=== PATIENT | female | born 1965 | race Caucasian/White ===

== ENCOUNTER → 2016-10-18 | Outpatient (CLI) | payer OTHER ==
--- NOTE | 2016-10-18 16:28 | MR ---
EXAMINATION TYPE: MR lumbar spine wo con DATE OF EXAM: 10/18/2016 4:22 PM COMPARISON: NONE HISTORY: Low back pain radiating into Both Hips and down both Legs for approx 10 years CONTRAST: none Multiplanar, MultiSpin echo imaging of the lumbar spine was performed. L1-L2: Normal disc appearance without desiccation. No herniation, protrusion or disc bulging. No ca nal stenosis is present. Foramina are patent bilaterally. L2-L3: Normal disc appearance without desiccation. No herniation, protrusion or disc bulging. No ca nal stenosis is present. Foramina are patent bilaterally. L3-L4: Normal disc appearance without desiccation. No herniation, protrusion or disc bulging. No ca nal stenosis is present. Foramina are patent bilaterally. L4-L5: There is evidence of mild disc desiccation. Minimal posterior disc bulge. No evidence of disc herniation or protrusion. No central stenosis. Mild facet joint arthropathy without foraminal encroac hment. L5-S1: Severe disc desiccation with degenerative endplate marrow change. Mild posterocentral disc her niation effaces the ventral thecal sac. No evidence for central stenosis or lateral recess stenosis. Facet joint arthropathy with mild right foraminal encroachment. Lumbar segments are intact. No paraspinal masses are identified. Conus medullaris has a normal appe arance. IMPRESSION: 1. Degenerative disc disease as discussed. 2. Mild posterocentral disc herniation at L5-S1. Mild right foraminal encroachment.
== END ==
LOC: RADMRIMAIN 15:51
PROVIDERS: ATTEND Family Medicine
DX: M51.27 Other intervertebral disc displacement, lumbosacral region (principal); M51.36 Other intervertebral disc degeneration, lumbar region
CPT/HCPCS: 72148

== ENCOUNTER → 2017-03-12 | Outpatient (CLI) | payer OTHER | END | disposition home or self-care (01) | LOC: LABWHC1 11:00 | PROVIDERS: ATTEND Nurse Practitioner | DX: Z51.81 Encounter for therapeutic drug level monitoring (principal); Z79.899 Other long term (current) drug therapy | CPT/HCPCS: 36415; 80183 ==

== ENCOUNTER → 2019-04-23 | Outpatient (CLI) | payer OTHER ==
--- NOTE | 2019-04-23 09:47 | US ---
EXAMINATION TYPE: US abdomen complete DATE OF EXAM: 04/23/2019 COMPARISON: MRI CLINICAL HISTORY: R10.13 Epigastric pain,R93.7 abn MRI. EXAM MEASUREMENTS: Liver Length: 10.9 cm Gallbladder Wall: Surgically absent CBD: 0.7 cm Spleen: 10.4 cm Right Kidney: 10.7 x 4.0 x 5.3 cm Left Kidney: 10.8 x 4.6 x cm Pancreas: hypoechoic area posterior to vs part of uncinate process, possible lymph node vs mass Liver: left lobe cyst measuring 1.9 x 2.3 x 2.0cm Gallbladder: Surgically absent Evidence for sonographic Lopez's sign:no CBD: wnl Spleen: wnl Right Kidney: No hydronephrosis or masses seen Left Kidney: No hydronephrosis or masses seen, limited views due to overlying bowel gas Upper IVC: wnl Abd Aorta: bifurcation obscured by overlying bowel gas IMPRESSION: 1. There is a hypoechoic area in the region of the uncinate process of indeterminate etiology. Recomm end CT scan of the abdomen.. 2. Left lobe hepatic cysts. 3. Postcholecystectomy.
== END | disposition home or self-care (01) ==
LOC: RADUSMAIN 08:18
PROVIDERS: ATTEND Family Medicine
DX: K76.89 Other specified diseases of liver (principal); Z90.49 Acquired absence of other specified parts of digestive tract
CPT/HCPCS: 76700

== ENCOUNTER → 2019-05-12 | Outpatient (CLI) | payer OTHER ==
--- NOTE | 2019-05-12 10:25 | CT ---
EXAMINATION TYPE: CT abdomen w con DATE OF EXAM: 05/12/2019 HISTORY: Abnormal abdominal ultrasound, epigastric pain CT DLP: 361.60mGycm Automated Exposure Control for Dose Reduction was Utilized. CONTRAST: CT scan of the abdomen is performed with oral and with IV Contrast, patient injected with 100 ml mL o f Isovue 300. COMPARISON: Abdominal ultrasound April 23, 2019. Lumbar spine MRI October 18, 2016 FINDINGS: LUNG BASES: No significant abnormality is appreciated. LIVER/GB: Cholecystectomy clips are redemonstrated. Correlating with ultrasound there are scattered r ound hypodense lesions throughout the liver consistent with thin walled hepatic cysts measuring up to 2.4 cm long axis left hepatic lobe axial image 16. Some lesions are subcentimeter and thus to small to further characterize. PANCREAS: Pancreas is normal in size without concerning solid or cystic mass or ductal dilatation. Un cinate process appears within normal limits near axial image 29. Adjacent intra-abdominal fat just po sterior to the uncinate process and retrocaval space likely mimics hypoechoic area on recent ultrasou nd SPLEEN: Subcentimeter low dense lesion posterior spleen axial image 23 too small to further character ize presumed benign. ADRENALS: No significant abnormality is seen. KIDNEYS: Symmetric cortical medullary uptake and excretion without hydronephrosis or concerning renal mass bilaterally. BOWEL: Or oral contrast does not reach distal ileal level making evaluation of bowel slightly subopti mal. They're slightly wandering cecum into the anterior right mid abdomen. There is no suspicious sma ll or large bowel dilatation. LYMPH NODES: No greater than 1cm abdominal lymph nodes are appreciated. OSSEOUS STRUCTURES: Mild to moderate disc space narrowing and vacuum disc phenomenon L5-S1 level. Fac et arthropathy lower lumbar levels. OTHER: No significant additional abnormality is seen. IMPRESSION: No concerning pancreatic mass. No significant acute finding is seen.
== END | disposition home or self-care (01) ==
LOC: RADCTMAIN 08:35
PROVIDERS: ATTEND Family Medicine
DX: R93.5 Abnormal findings on diagnostic imaging of other abdominal regions, including retroperitoneum (principal)
CPT/HCPCS: 74160; Q9967

== ENCOUNTER 2019-11-25 09:17 | Emergency (ER) | payer OTHER ==
[2019-11-25 09:24] VITALS: TEMP 98.4
[2019-11-25] MEDS ORDERED: LORazepam 1 MG TAB PO STA (09:35)
[2019-11-25] MEDS ORDERED: ASPIRIN 81 MG PO STA (09:35)
[2019-11-25] MEDS ORDERED: SODIUM CHLORIDE 0.9% 1,000 ML IV STA (09:35)
--- NOTE | 2019-11-25 09:42 | ED ---
General Adult HPI - General Chief complaint: Shortness of Breath Stated complaint: SOB, dizzy Time Seen by Provider: 11/25/19 09:26 Source: patient, RN notes reviewed Mode of arrival: wheelchair Limitations: no limitations - History of Present Illness Initial comments: 54-year-old female with a past medical history of asthma, rheumatoid arthritis, bipolar disorder, bradycardia presents to the emergency department for a chief complaint of shortness of breath. Patient states that today she was sitting out in her car for over an hour and a half waiting to have a Covid test done. Patient states that she started to get short of breath when the humidity started increasing. States she started to drive home but the shortness of breath got worse and she started to become lightheaded. She felt like she was going to pass out so she drove back to the hospital. Patient denies any chest pain whatsoever at this time or at the beginning of this episode. Patient states this type of episode has been ongoing intermittently for about a month. States it usually lasts for 45 minutes and happen several times per day. Patient states over the past couple days she has felt better until now. Patient is noted to be hyperventilating at this point. Stating her fingers are tingling.Patient has no other complaints at this time including chest pain, abdominal pain, nausea or vomiting, headache, or visual changes. - Related Data Allergies Allergy/AdvReac Type Severity Reaction Status Date / Time meloxicam [From Mobic] Allergy Rash/Hives Verified 11/25/19 09:25 Penicillins Allergy Unknown Verified 11/25/19 09:25 Childhood Review of Systems ROS Statement: Those systems with pertinent positive or pertinent negative responses have been documented in the HPI. ROS Other: All systems not noted in ROS Statement are negative. Past Medical History Past Medical History: Asthma, Rheumatoid Arthritis (RA) Additional Past Medical History / Comment(s): biolar, ddd, bradycardia History of Any Multi-Drug Resistant Organisms: MRSA Date of last positivie culture/infection: 2019 MDRO Source:: toe Past Surgical History: Cholecystectomy Additional Past Surgical History / Comment(s): abd lap Past Psychological History: Bipolar Smoking Status: Former smoker Past Alcohol Use History: Rare Past Drug Use History: Marijuana General Exam Limitations: no limitations General appearance: alert, in no apparent distress Head exam: Present: atraumatic, normocephalic, normal inspection Eye exam: Present: normal appearance, PERRL, EOMI. Absent: scleral icterus, conjunctival injection, periorbital swelling ENT exam: Present: normal exam, mucous membranes moist Neck exam: Present: normal inspection, full ROM. Absent: tenderness, meningismus, lymphadenopathy Respiratory exam: Present: normal lung sounds bilaterally, other (tachypneic ). Absent: respiratory distress, wheezes, rales, rhonchi, stridor Cardiovascular Exam: Present: regular rate, normal rhythm, normal heart sounds. Absent: systolic murmur, diastolic murmur, rubs, gallop, clicks GI/Abdominal exam: Present: soft, normal bowel sounds. Absent: distended, tenderness, guarding, rebound, rigid Neurological exam: Present: alert Course Vital Signs 11/25/19 11/25/19 11/25/19 09:21 09:24 10:24 Temperature 98.4 F Pulse Rate 72 69 Respiratory 24 20 18 Rate Blood Pressure 130/81 115/61 O2 Sat by Pulse 100 99 Oximetry EKG Findings - EKG Comments: EKG Findings:: Normal sinus rhythm, ventricular rate 66, CT interval 134, QTC 438 Medical Decision Making - Medical Decision Making Vitals are stable. Heart rate is in the 50s and 60s. 100% on room air. On presentation patient is hyperventilating and very anxious. I did help patient called down and slow her breathing which helped with the tingling in her hands. She denies any chest pain. EKG shows a normal sinus rhythm with a ventricular rate of 66. CBC is unremarkable. CMP does show some mild hyponatremia, patient was given a liter of normal saline. CO2 is mildly low which is likely secondary to hyperventilation. Troponin and d-dimer are negative. Chest x-ray showed no acute process. Patient was reevaluated several times and is feeling much better at this time. Patient can follow up with primary care and to return here for any worsening symptoms. I discussed this case with attending Dr. Baltazar who agrees with this assessment and treatment plan. - Lab Data Result diagrams: 11/25/19 09:40 11/25/19 09:40 Lab Results 11/25/19 11/25/19 11/25/19 Range/Units 09:40 09:40 09:40 WBC 5.9 (3.8-10.6) k/uL RBC 4.35 (3.80-5.40) m/uL Hgb 13.1 (11.4-16.0) gm/dL Hct 38.7 (34.0-46.0) % MCV 88.9 (80.0-100.0) fL MCH 30.2 (25.0-35.0) pg MCHC 33.9 (31.0-37.0) g/dL RDW 12.3 (11.5-15.5) % Plt Count 283 (150-450) k/uL Neutrophils % 59 % Lymphocytes % 31 % Monocytes % 5 % Eosinophils % 2 % Basophils % 1 % Neutrophils # 3.5 (1.3-7.7) k/uL Lymphocytes # 1.8 (1.0-4.8) k/uL Monocytes # 0.3 (0-1.0) k/uL Eosinophils # 0.1 (0-0.7) k/uL Basophils # 0.1 (0-0.2) k/uL PT 9.8 (9.0-12.0) sec INR 0.9 (<1.2) APTT 23.6 (22.0-30.0) sec D-Dimer <0.17 (<0.60) mg/L FEU Sodium 130 L (137-145) mmol/L Potassium 4.1 (3.5-5.1) mmol/L Chloride 103 (98-107) mmol/L Carbon Dioxide 19 L (22-30) mmol/L Anion Gap 8 mmol/L BUN 10 (7-17) mg/dL Creatinine 0.54 (0.52-1.04) mg/dL Est GFR (CKD-EPI)AfAm >90 (>60 ml/min/1.73 sqM) Est GFR (CKD-EPI)NonAf >90 (>60 ml/min/1.73 sqM) Glucose 100 H (74-99) mg/dL Calcium 9.4 (8.4-10.2) mg/dL Magnesium 2.0 (1.6-2.3) mg/dL Total Bilirubin 0.4 (0.2-1.3) mg/dL AST 24 (14-36) U/L ALT 18 (4-34) U/L Alkaline Phosphatase 59 (38-126) U/L Troponin I (0.000-0.034) ng/mL NT-Pro-B Natriuret Pep pg/mL Total Protein 7.2 (6.3-8.2) g/dL Albumin 4.5 (3.5-5.0) g/dL Urine Opiates Screen (NotDetected) Ur Oxycodone Screen (NotDetected) Urine Methadone Screen (NotDetected) Ur Propoxyphene Screen (NotDetected) Ur Barbiturates Screen (NotDetected) U Tricyclic Antidepress (NotDetected) Ur Phencyclidine Scrn (NotDetected) Ur Amphetamines Screen (NotDetected) U Methamphetamines Scrn (NotDetected) U Benzodiazepines Scrn (NotDetected) Urine Cocaine Screen (NotDetected) U Marijuana (THC) Screen (NotDetected) Serum Alcohol <10 mg/dL 11/25/19 11/25/19 11/25/19 Range/Units 09:40 09:40 10:00 WBC (3.8-10.6) k/uL RBC (3.80-5.40) m/uL Hgb (11.4-16.0) gm/dL Hct (34.0-46.0) % MCV (80.0-100.0) fL MCH (25.0-35.0) pg MCHC (31.0-37.0) g/dL RDW (11.5-15.5) % Plt Count (150-450) k/uL Neutrophils % % Lymphocytes % % Monocytes % % Eosinophils % % Basophils % % Neutrophils # (1.3-7.7) k/uL Lymphocytes # (1.0-4.8) k/uL Monocytes # (0-1.0) k/uL Eosinophils # (0-0.7) k/uL Basophils # (0-0.2) k/uL PT (9.0-12.0) sec INR (<1.2) APTT (22.0-30.0) sec D-Dimer (<0.60) mg/L FEU Sodium (137-145) mmol/L Potassium (3.5-5.1) mmol/L Chloride (98-107) mmol/L Carbon Dioxide (22-30) mmol/L Anion Gap mmol/L BUN (7-17) mg/dL Creatinine (0.52-1.04) mg/dL Est GFR (CKD-EPI)AfAm (>60 ml/min/1.73 sqM) Est GFR (CKD-EPI)NonAf (>60 ml/min/1.73 sqM) Glucose (74-99) mg/dL Calcium (8.4-10.2) mg/dL Magnesium (1.6-2.3) mg/dL Total Bilirubin (0.2-1.3) mg/dL AST (14-36) U/L ALT (4-34) U/L Alkaline Phosphatase (38-126) U/L Troponin I <0.012 (0.000-0.034) ng/mL NT-Pro-B Natriuret Pep 175 pg/mL Total Protein (6.3-8.2) g/dL Albumin (3.5-5.0) g/dL Urine Opiates Screen Not Detected (NotDetected) Ur Oxycodone Screen Not Detected (NotDetected) Urine Methadone Screen Not Detected (NotDetected) Ur Propoxyphene Screen Not Detected (NotDetected) Ur Barbiturates Screen Not Detected (NotDetected) U Tricyclic Antidepress Not Detected (NotDetected) Ur Phencyclidine Scrn Not Detected (NotDetected) Ur Amphetamines Screen Not Detected (NotDetected) U Methamphetamines Scrn Not Detected (NotDetected) U Benzodiazepines Scrn Not Detected (NotDetected) Urine Cocaine Screen Not Detected (NotDetected) U Marijuana (THC) Screen Detected H (NotDetected) Serum Alcohol mg/dL Disposition Clinical Impression: Acute hyperventilation, Shortness of breath Disposition: HOME SELF-CARE Condition: Good Instructions (If sedation given, give patient instructions): Hyperventilation (ED) Additional Instructions: Please follow up with primary care in 1-2 days. Please return to the emergency room for any worsening symptoms. Is patient prescribed a controlled substance at d/c from ED?: No Referrals: Molly Saavedra MD [Primary Care Provider] - 1-2 days Time of Disposition: 11:14
--- NOTE | 2019-11-25 10:07 | XR ---
EXAMINATION TYPE: XR chest 1V portable DATE OF EXAM: 11/25/2019 COMPARISON: NONE HISTORY: Shortness of breath TECHNIQUE: Single frontal view of the chest is obtained. FINDINGS: There is no focal air space opacity, pleural effusion, or pneumothorax seen. The cardiac silhouette size is within normal limits. The osseous structures are intact. Heart size is normal. No overt failure. Biapical pleural thickenin g. Arthropathy of the shoulders. Mild hyperinflation. Correlate for asthma or COPD. Rounded density i n the right apex likely related to the anterior margin the first rib and could be followed on a short -term basis with apical lordotic x-ray. IMPRESSION: No acute process. See above.
[2019-11-25 10:09] LABS: Basophils # (A) 0.1 k/uL (0-0.2); Basophils % (A) 1 %; Eosinophils # (A) 0.1 k/uL (0-0.7); Eosinophils % (A) 2 %; HCT 38.7 % (34.0-46.0); HGB 13.1 gm/dL (11.4-16.0); Lymphocytes # (A) 1.8 k/uL (1.0-4.8); Lymphocytes % (A) 31 %; MCH 30.2 pg (25.0-35.0); MCHC 33.9 g/dL (31.0-37.0); MCV 88.9 fL (80.0-100.0); Monocytes # (A) 0.3 k/uL (0-1.0); Monocytes % (A) 5 %; Neutrophils # (A) 3.5 k/uL (1.3-7.7); Neutrophils % (A) 59 %; Platelet Count 283 k/uL (150-450); RBC 4.35 m/uL (3.80-5.40); RDW 12.3 % (11.5-15.5); WBC 5.9 k/uL (3.8-10.6)
[2019-11-25 10:22] LABS: INR 0.9 (<1.2); Partial Thromboplastin Time 23.6 sec (22.0-30.0); Prothrombin Time 9.8 sec (9.0-12.0)
[2019-11-25 10:24] LABS: D-Dimer <0.17 mg/L FEU (<0.60)
[2019-11-25 10:25] VITALS: RESP 18
[2019-11-25 10:33] LABS: ALT 18 U/L (4-34); AST 24 U/L (14-36); African American GFR (CKD) >90 (>60 ml/min/1.73 sqM); Albumin 4.5 g/dL (3.5-5.0); Alcohol <10 mg/dL; Alkaline Phosphatase 59 U/L (38-126); Anion Gap 8 mmol/L; Blood Urea Nitrogen 10 mg/dL (7-17); Calcium 9.4 mg/dL (8.4-10.2); Carbon Dioxide 19 mmol/L (22-30); Chloride 103 mmol/L (98-107); Glucose 100 mg/dL (74-99); Non-African American GFR(CKD) >90 (>60 ml/min/1.73 sqM); Potassium 4.1 mmol/L (3.5-5.1); Sodium 130 mmol/L (137-145); Total Bilirubin 0.4 mg/dL (0.2-1.3); Total Protein 7.2 g/dL (6.3-8.2)
[2019-11-25 10:55] LABS: Amphetamine Screen,Urine Not Detected (NotDetected); Barbiturate Screen,Urine Not Detected (NotDetected); Benzodiazepines Screen,Urine Not Detected (NotDetected); Cocaine Screen,Urine Not Detected (NotDetected); Methadone Screen, Urine Not Detected (NotDetected); Opiate Screen,Urine Not Detected (NotDetected); Oxycodone Screen, Urine Not Detected (NotDetected); Phencyclidine Screen,Urine Not Detected (NotDetected); Tricyclic Antidepressant,Urine Not Detected (NotDetected); Urn Cannabinoid Scrn Detected (NotDetected)
[2019-11-25 11:31] VITALS: BP 122/71; PULSE 60
== END 2019-11-25 11:45 | disposition home or self-care (01) ==
LOC: EC 09:17
DX: R06.4 Hyperventilation (principal); R06.02 Shortness of breath; R42 Dizziness and giddiness; E87.1 Hypo-osmolality and hyponatremia; Z88.0 Allergy status to penicillin; Z88.8 Allergy status to other drugs, medicaments and biological substances; Z87.891 Personal history of nicotine dependence
CPT/HCPCS: 36415; 93005; 85379; 83880; 80053; 83735; 84484; 85025; 85610; 85730; 80306; 71045; 99285; 96360; G0480; 80320

== ENCOUNTER → 2019-11-25 | Outpatient (CLI) | payer OTHER | END | disposition home or self-care (01) | LOC: LABWHC1 13:27 | PROVIDERS: ATTEND Family Medicine | DX: R53.83 Other fatigue (principal); R42 Dizziness and giddiness ==

== ENCOUNTER → 2019-12-17 | Outpatient (CLI) | payer OTHER ==
--- NOTE | 2019-12-17 08:04 | CT ---
EXAMINATION TYPE: CT chest wo con DATE OF EXAM: 12/17/2019 COMPARISON: None HISTORY: Abnormal chest x-ray CT DLP: 198.[address] of the chest was performed with lung and mediastinal window settings submitted. The la ck of contrast limits evaluation of the vascular, mediastinal and parenchymal structures including th e upper abdomen. LUNGS: The lungs are clear and free of infiltrate. No atelectasis. No pulmonary nodule or mass is de tected. No pleural effusion. No CT evidence of interstitial lung disease. MEDIASTINUM/MELANIA: Thoracic aorta is of normal caliber with limited evaluation given lack of contrast . The heart is not enlarged. No evidence for mediastinal mass. No lymph nodes greater than 1cm. UPPER ABDOMEN: Hepatic cysts noted. OTHER: No significant other abnormality. IMPRESSION: 1. No acute pulmonary process identified. No evidence for suspicious pulmonary nodule or mass.
== END | disposition home or self-care (01) ==
LOC: RADCTMAIN 07:17
PROVIDERS: ATTEND Family Medicine
DX: J45.40 Moderate persistent asthma, uncomplicated (principal); R93.89 Abnormal findings on diagnostic imaging of other specified body structures
CPT/HCPCS: 71250

== ENCOUNTER → 2020-06-26 | Outpatient (CLI) | payer OTHER ==
[2020-06-26 20:09] LABS: T4, Free (Free Thyroxine) 0.8 ng/dL (0.80-1.80)
== END | disposition home or self-care (01) ==
LOC: LABWHC1 14:02
PROVIDERS: ATTEND Nurse Practitioner Family
DX: E55.9 Vitamin D deficiency, unspecified (principal); R53.2 Functional quadriplegia; R53.83 Other fatigue
CPT/HCPCS: 36415; 82306; 82607; 84439; 84443; 84481

== ENCOUNTER → 2020-08-11 | Outpatient (CLI) | payer OTHER ==
--- NOTE | 2020-08-11 15:17 | US ---
EXAMINATION TYPE: US kidneys/renal and bladder DATE OF EXAM: 08/11/2020 COMPARISON: US & CT CLINICAL HISTORY: E87.1 Hypo-osmolality and hyponatremia. Abnormal labs EXAM MEASUREMENTS: Right Kidney: 11.6 x 4.2 x 4.5 cm Left Kidney: 11.4 x 5.3 x 4.7 cm Right Kidney: Appeared wnl Left Kidney: Appeared wnl, lower pole gassed out Bladder: wnl IMPRESSION: 1. Normal bilateral renal ultrasound
== END | disposition home or self-care (01) ==
LOC: RADUSWWP 14:30
PROVIDERS: ATTEND Family Medicine
DX: E87.1 Hypo-osmolality and hyponatremia (principal)
CPT/HCPCS: 76770

== ENCOUNTER → 2020-08-25 | Outpatient (CLI) | payer OTHER ==
[2020-08-25 10:16] VITALS: BP 133/83; PULSE 83; RESP 18; TEMP 98.4
--- NOTE | 2020-08-25 11:05 | P.GSHP ---
History of Present Illness H&P Date: 08/25/20 Chief Complaint: abnormal right breast mammogram Praveena is a 55 year old white female seen in consultation for Dr. Saavedra regarding a mammographic abnormality in her right breast. [place] [id number]. This reveals 6-7 mm nodular density in the upper-outer quadrant of the right breast. No lesions of concern were noted in the left breast. An ultrasound was performed. This revealed a 0.5 cm circumscribed oval lesion. This was felt to be too small to characterize and 6 month follow-up ultrasound was recommended. The patient herself does not note any lumps masses or nodules in her breast. She does not complain of any nipple discharge or skin changes. The complain of any breast pain. She has not had any recent trauma or infection in the breast. She's not had any surgery or biopsies in the breast in the past. Caffeine: Focus of coffee in the morning and one popped during the day Nicotine: Tiffanie jeanne-bromine: daily Family history: father: thyroid cancer maternal grandfather: cancer, ? source 2 brother: testicular cancer Hormonal History: menarche: 13 , 1 miscarriage, age at first : 15, breast fed: no menopause:48 BCP: < 1 years hormones: none Surgical History: exploratory laproscopic exam oral surgery biopsy of skin gallbaldder Medical History: herniation of cervical disc lumbar spine herniation DJD osteoarthritis arthritis rheumatoid bipolar and major depressive disorder Social History: smoke: stopped 2017, was 1 06/24 PPD alcohol: stopped drinking 2 years ago used to drink heavy drugs: Marijuana daily - Constitutional Constitutional: Reports sweats - EENT Eyes: bilateral as per HPI Ears: deny: decreased hearing, tinnitus Ears, nose, mouth and throat: Denies headache, Denies sore throat - Breasts Breasts: bilateral: as per HPI - Cardiovascular Cardiovascular: Denies chest pain, Denies shortness of breath - Respiratory Comment: former smoker, asthma, sleep apnea - Gastrointestinal Gastrointestinal: Reports constipation, Denies abdominal pain, Denies diarrhea, Denies nausea, Denies vomiting - Genitourinary (Female) Genitourinary: Denies dysuria, Denies hematuria - Menstruation Menstruation: Reports postmenopausal - Musculoskeletal Musculoskeletal: Reports as per HPI - Integumentary Integumentary: Reports pruritus - Neurological Neurological: Reports numbness, Reports weakness - Psychiatric Comment: bipolar Psychiatric: Reports anxiety, Reports depression - Endocrine Endocrine: Reports fatigue, Reports weight change - Hematologic/Lymphatic Comment: none - Allergic/Immunologic Allergic/Immunologic: Reports seasonal allergies Past Medical History Past Medical History: Asthma, Rheumatoid Arthritis (RA) Additional Past Medical History / Comment(s): biolar, ddd, bradycardia History of Any Multi-Drug Resistant Organisms: MRSA Date of last positivie culture/infection: 2019 MDRO Source:: toe Past Surgical History: Cholecystectomy Additional Past Surgical History / Comment(s): abd lap Past Psychological History: Bipolar Smoking Status: Former smoker Past Alcohol Use History: Rare Past Drug Use History: Marijuana Medications and Allergies Home Medications Medication Instructions Recorded Confirmed Type Albuterol Sulfate [Proair Hfa] 1 - 2 puff INHALATION Q6HR PRN 08/25/20 08/25/20 History Budesonide/Formoterol Fumarate 2 puff INHALATION BID 08/25/20 08/25/20 History [Symbicort 160-4.5 Mcg Inhaler] Citalopram Hydrobromide 40 mg PO HS 08/25/20 08/25/20 History [Citalopram HBr] Ergocalciferol (Vitamin D2) 1,250 mcg PO DAILY 08/25/20 08/25/20 History [Vitamin D2 (50,000 Iu)] Gabapentin [Neurontin] 400 mg PO TID 08/25/20 08/25/20 History HYDROcodone/APAP 5-325MG [[place] 2 tab PO Q6HR PRN 08/25/20 08/25/20 History 5-325] Montelukast [Singulair] 10 mg PO HS 08/25/20 08/25/20 History tiZANidine [Zanaflex] 4 mg PO 08/25/20 History Allergies Allergy/AdvReac Type Severity Reaction Status Date / Time meloxicam [From Mob] Allergy Rash/Hives Verified 08/25/20 10:12 Penicillins Allergy Unknown Verified 08/25/20 10:12 Childhood Surgical - Exam Vital Signs Temp Pulse Resp BP Pulse Ox 98.4 F 83 18 133/83 97 08/25/20 10:12 08/25/20 10:12 08/25/20 10:12 08/25/20 10:12 08/25/20 10:12 BMI 23.5 - General well developed, well nourished, moderate distress - Eyes normal ocular movement - ENT edentulous upper teeth, poor dentition normal pinna, normal nares - Neck no masses, trachea midline - Respiratory normal respiratory effort, clear to auscultation - Cardiovascular Rhythm: regular Heart Sounds: normal: S1, S2 - Abdomen Abdomen: soft - Integumentary normal turgor - Neurologic no disoriented, no combative - Musculoskeletal difficulty with ambulation - Psychiatric oriented to time, oriented to person, oriented to place, speech is normal, memory intact breast exam: BRA: 36B inspection: Bilateral grade 1/2 ptosis, tattoo over left chest wall Palpation: Right breast: Multiple positional exam fibrocystic changes, no dominant masses or nodules of concern Right axilla: No adenopathy of concern Left breast: Multiple positional exam fibrocystic changes no dominant masses or nodules of concern Left axilla: No adenopathy of concern Results mammogram and ultrasound results reviewed Assessment and Plan Assessment: Impression: 1. Fibrocystic breast changes 2. Abnormal right breast mammogram and ultrasound 3. Bipolar disorder 4. Severe back pain degenerative disc disease 5. Rheumatoid arthritis Risk of comorbidities: Repeat mammogram and ultrasound were ordered Plan: 1. Lifestyle modification to decrease fibrocystic breast changes/daily chocolate patient understands that this may exacerbate fibrocystic changes but did not increase risk of breast cancer 2. Repeat right breast mammogram and ultrasound in 6 months with physician exam at that time 3. Patient is follow up sooner if anything of concern Cc: Dr. Saavedra Encounter 25 minutes, time spent in physical examination, reviewing medical records, and counseling. encounter: #Complexity of problems: Fibrocystic breast disease, abnormal mammogram and ultrasound, family history of cancer, severe degenerative disc disease, rheumatoid arthritis Amount and complexity of data reviewed Mammogram and ultrasound results reviewed, repeat mammogram and ultrasound ordered, Risk of morbidity or mortality: Low to moderate
== END ==
LOC: WWCWWP 10:04
PROVIDERS: ATTEND Surgery
DX: N60.11 Diffuse cystic mastopathy of right breast (principal); R92.8 Other abnormal and inconclusive findings on diagnostic imaging of breast; F31.9 Bipolar disorder, unspecified; M54.9 Dorsalgia, unspecified; M06.9 Rheumatoid arthritis, unspecified; J45.909 Unspecified asthma, uncomplicated; M50.320 Other cervical disc degeneration, mid-cervical region, unspecified level; M51.36 Other intervertebral disc degeneration, lumbar region; Z87.891 Personal history of nicotine dependence; Z79.899 Other long term (current) drug therapy

== ENCOUNTER → 2020-09-11 | Outpatient (CLI) | payer OTHER ==
[2020-09-11 11:14] LABS: Appearance,Urine Clear (Clear); Bilirubin,Urine Negative (Negative); Blood,Urine Negative (Negative); Color,Urine Yellow; Glucose,Urine (UA) Negative (Negative); Ketones,Urine Negative (Negative); Leukocyte Esterase,Urine Negative (Negative); Nitrite,Urine Negative (Negative); Protein,Urine Negative (Negative); Specific Gravity,Urine 1.012 (1.001-1.035); Urobilinogen,Urine <2.0 mg/dL (<2.0)
[2020-09-11 15:11] LABS: Basophils # (A) 0.03 X 10*3/uL (0.00-0.10); Basophils % (A) 0.8 %; Eosinophils # (A) 0.12 X 10*3/uL (0.04-0.35); Eosinophils % (A) 3.1 %; HCT 38.7 % (37.2-46.3); HGB 12.8 g/dL (12.0-15.0); Lymphocytes # (A) 1.27 X 10*3/uL (0.90-5.00); Lymphocytes % (A) 32.5 %; MCH 30.5 pg (27.0-32.0); MCHC 33.1 g/dL (32.0-37.0); MCV 92.1 fL (80.0-97.0); Mean Platelet Volume 10.7 fL (9.5-12.2); Monocytes # (A) 0.29 X 10*3/uL (0.20-1.00); Monocytes % (A) 7.4 %; Neutrophils # (A) 2.18 X 10*3/uL (1.80-7.70); Neutrophils % (A) 55.7 %; Platelet Count 193 X 10*3/uL (140-440); RDW 11.9 % (11.5-14.5); WBC 3.91 X 10*3/uL (4.50-10.00)
[2020-09-11 15:50] LABS: African American GFR (CKD) 94.9 (60.0-200.0); Albumin 4.7 g/dL (3.80-4.90); Albumin/Globulin Ratio 2.61 (1.60-3.17); Anion Gap 4.8 mmol/L (4.00-12.00); BUN/Creat Ratio 16.25 Ratio (12.00-20.00); Calcium 9.7 mg/dL (8.7-10.3); Carbon Dioxide 28.2 mmol/L (21.6-31.8); Globulin 1.8 g/dL (1.6-3.3); Non-African American GFR(CKD) 81.8 (60.0-200.0); Phosphorus 4.2 mg/dL (2.4-5.1); Potassium 4.3 mmol/L (3.5-5.5); Total Bilirubin 0.5 mg/dL (0.2-1.2); Total Protein 6.5 g/dL (6.2-8.2)
== END | disposition home or self-care (01) ==
LOC: LABWHC1 09:05
PROVIDERS: ATTEND Family Medicine
DX: E87.1 Hypo-osmolality and hyponatremia (principal)
CPT/HCPCS: 36415; 80053; 81003; 84100; 85025

== ENCOUNTER → 2020-09-28 | Outpatient (CLI) | payer OTHER ==
--- NOTE | 2020-09-28 09:17 | US ---
EXAMINATION TYPE: US abdomen complete DATE OF EXAM: 09/28/2020 COMPARISON: NONE CLINICAL HISTORY: Abnormal MRI free pelvic fluid. Free fluid on MRI EXAM MEASUREMENTS: Liver Length: 13.5 cm Gallbladder Wall: cm CBD: .7 cm Spleen: 11.5 cm Right Kidney: 9.3 x 3.9 x 4.7 cm Left Kidney: 10.8 x 5.1 x cm Pancreas: wnl Liver: Cystic area in left lobe 2.7 x 2.8 x 2.0 cm Gallbladder: Surgically absent Evidence for sonographic Lopez's sign: No CBD: wnl Spleen: wnl Right Kidney: wnl Left Kidney: wnl Upper IVC: wnl Abd Aorta: wnl The liver is homogenous. The intrahepatic portion of the IVC and proximal abdominal aorta are within normal limits. Common bile duct is unremarkable. The visualized portions of the pancreas are homog enous. The spleen is unremarkable. Kidneys are symmetric and free of hydronephrosis. No renal lesi ons are seen. IMPRESSION: 1. simple cyst left hepatic lobe. Otherwise unremarkable study.
--- NOTE | 2020-09-28 09:46 | US ---
EXAMINATION TYPE: US transvaginal DATE OF EXAM: 09/28/2020 COMPARISON: NONE CLINICAL HISTORY: Abnormal MRI free pelvic fluid. Free fluid seen on MRI TECHNIQUE: Transvaginal (TV). EXAM MEASUREMENTS: Uterus: 5.8 x 3.1 x 3.9 cm Endometrial Stripe: .2 cm 1. Uterus: Retroverted wnl 2. Endometrium: wnl 3. Right Ovary: Obscured by overlying bowel gas 4. Left Ovary: Obscured by overlying bowel gas 5. Bilateral Adnexa: wnl 6. Posterior cul-de-sac: wnl IMPRESSION: No discrete abnormality appreciated.
== END | disposition home or self-care (01) ==
LOC: RADUSWWP 08:28
PROVIDERS: ATTEND Psychiatry & Neurology Neurology
DX: K76.89 Other specified diseases of liver (principal)
CPT/HCPCS: 76700; 76830

== ENCOUNTER → 2020-10-16 | Outpatient (CLI) | payer OTHER ==
[2020-10-16 19:53] LABS: African American GFR (CKD) 117.3 (60.0-200.0); Anion Gap 5.5 mmol/L (4.00-12.00); BUN/Creat Ratio 16.67 Ratio (12.00-20.00); Calcium 9.4 mg/dL (8.7-10.3); Carbon Dioxide 24.5 mmol/L (21.6-31.8); Non-African American GFR(CKD) 101.2 (60.0-200.0); Potassium 4.5 mmol/L (3.5-5.5)
[2020-10-16 20:22] LABS: Uric Acid 4.7 mg/dL (2.9-7.7)
== END | disposition home or self-care (01) ==
LOC: LABWHC1 11:52
PROVIDERS: ATTEND Internal Medicine Nephrology
DX: E87.1 Hypo-osmolality and hyponatremia (principal); M10.9 Gout, unspecified
CPT/HCPCS: 36415; 80048; 82533; 83935; 84443; 84550; 86335

== ENCOUNTER → 2021-01-17 | Outpatient (CLI) | payer OTHER ==
--- NOTE | 2021-01-19 13:40 | MM ---
Reason for exam: follow-up at short interval from prior study. Last mammogram was performed 6 months ago. History: Family history of breast cancer in sister at age 20. Physical Findings: Nurse did not find any significant physical abnormalities on exam. MG Diagnostic Mammo RT w CAD CC, MLO, and XCCL view(s) were taken of the right breast. Prior study comparison: July 06, 2020, mammogram, performed at [facility]. The breast tissue is heterogeneously dense. This may lower the sensitivity of mammography. There is no discrete abnormality. Previous nodule not seen. No significant new findings when compared with previous films. These results were verbally communicated with the patient and result sheet given to the patient on 01/17/21. ASSESSMENT: Benign, BI-RAD 2 RECOMMENDATION: Routine screening mammogram of both breasts in 6 months. Back on schedule for June 2021.
--- NOTE | 2021-01-19 13:41 | USB ---
Reason for exam: follow-up at short interval from prior study. History: Family history of breast cancer in sister at age 20. US Breast Limited RT Right limited breast ultrasound including focal area of concern, retroareolar and axilla demonstrates a 0.3 x 0.2 x 0.4cm stable lesion too small to characterize at 11 o'clock. These results were verbally communicated with the patient and result sheet given to the patient on 01/17/21. ASSESSMENT: Probably benign, BI-RAD 3 RECOMMENDATION: Routine screening mammogram of both breasts in 6 months. Back on schedule for June 2021.
== END | disposition home or self-care (01) ==
LOC: RADMAMWWP 13:31
PROVIDERS: ATTEND Surgery
DX: R92.8 Other abnormal and inconclusive findings on diagnostic imaging of breast (principal)
CPT/HCPCS: 77065

== ENCOUNTER → 2021-01-17 | Outpatient (CLI) | payer OTHER ==
[2021-01-18 09:59] LABS: African American GFR (CKD) 94.9 (60.0-200.0); Anion Gap 10.3 mmol/L (4.00-12.00); BUN/Creat Ratio 13.75 Ratio (12.00-20.00); Calcium 9.2 mg/dL (8.7-10.3); Carbon Dioxide 23.7 mmol/L (21.6-31.8); Non-African American GFR(CKD) 81.8 (60.0-200.0); Potassium 4.3 mmol/L (3.5-5.5)
== END | disposition home or self-care (01) ==
LOC: LABWHC1 15:30
PROVIDERS: ATTEND Nurse Practitioner Family
DX: E87.1 Hypo-osmolality and hyponatremia (principal)
CPT/HCPCS: 36415; 80048

== ENCOUNTER → 2021-05-03 | Outpatient (CLI) | payer OTHER ==
[2021-05-05 22:49] LABS: Anti-Smith Ab Interp NEGATIVE (NEGATIVE); DNA Double-Stranded NEGATIVE (NEGATIVE); JO-1 IgG Antibody <0.2 AI; Scleroderma SC-70 Ab <0.2 AI
[2021-05-05 23:45] LABS: Cyclic Citrull Pep IgG Unit 33.1 U/mL; Cyclic Citrullinated Pep IgG POSITIVE (NEGATIVE)
== END | disposition home or self-care (01) ==
LOC: LABWHC1 13:56
PROVIDERS: ATTEND Nurse Practitioner Family
DX: M25.50 Pain in unspecified joint (principal)
CPT/HCPCS: 36415; 83516; 86038; 86200; 86225; 86235

== ENCOUNTER → 2021-05-10 | Outpatient (CLI) | payer OTHER ==
[2021-05-10 14:57] VITALS: BP 127/79; PULSE 83; RESP 16; TEMP 98.5
--- NOTE | 2021-05-10 15:26 | P.PN ---
Subjective Progress Note Date: 05/10/21 Principal diagnosis: Fibrocystic breast changes Praveena is a 55 year old white female seen in consultation for Dr. Cunha on 08-25-20 regarding a mammographic abnormality in her right breast. She had a bilateral mammogram performed on . This revealed a 6-7 mm nodular density in the upper-outer quadrant of the right breast. No lesions of concern were noted in the left breast. An ultrasound was performed. This revealed a 0.5 cm circumscribed oval lesion. This was felt to be too small to characterize and 6 month follow-up ultrasound was recommended. The patient herself did not note any lumps masses or nodules in her breast. She did not complain of any nip ple discharge or skin changes. No complaints of any breast pain. She had not had any recent trauma or infection in the breast. She's not had any surgery or biopsies in the breast in the past. The patient on 01-17-21 had a right breast mammogram and ultrasound which was BIRAD 3 and 6 month follow up of both breast recommended. Caffeine: Focus of coffee in the morning and one popped during the day Nicotine: Tiffanie jeanne-bromine: daily Family history: father: thyroid cancer maternal grandfather: cancer, ? 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 osteoarthritis arthritis rheumatoid bipolar and major depressive disorder Social History: smoke: stopped 2017, was 06/24 PPD alcohol: stopped drinking 2 years ago used to drink heavy drugs: Marijuana daily - Constitutional Constitutional: Reports sweats - EENT Eyes: bilateral as per HPI Ears: deny: decreased hearing, tinnitus Ears, nose, mouth and throat: Denies headache, Denies sore throat - Breasts Breasts: bilateral: as per HPI - Cardiovascular Cardiovascular: Denies chest pain, Denies shortness of breath - Respiratory Comment: former smoker, asthma, sleep apnea - Gastrointestinal Gastrointestinal: Reports constipation, Denies abdominal pain, Denies diarrhea, Denies nausea, Denies vomiting - Genitourinary (Female) Genitourinary: Denies dysuria, Denies hematuria - Menstruation Menstruation: Reports postmenopausal - Musculoskeletal Musculoskeletal: Reports as per HPI - Integumentary Integumentary: Reports pruritus - Neurological Neurological: Reports numbness, Reports weakness - Psychiatric Comment: bipolar Psychiatric: Reports anxiety, Reports depression - Endocrine Endocrine: Reports fatigue, Reports weight change - Hematologic/Lymphatic Comment: none - Allergic/Immunologic Allergic/Immunologic: Reports seasonal allergies Objective - Vital Signs Vital signs: Vital Signs Temp 98.5 F 05/10/21 14:52 Pulse 83 05/10/21 14:52 Resp 16 05/10/21 14:52 BP 127/79 05/10/21 14:52 Pulse Ox Intake & Output 05/09/21 05/10/21 05/10/21 18:59 06:59 18:59 Weight 71.214 kg - Constitutional General appearance: Present: cooperative - EENT Eyes: Present: EOMI ENT: Present: hearing grossly normal - Neck Neck: Present: normal ROM - Respiratory Respiratory: bilateral: CTA - Cardiovascular Rhythm: regular Heart sounds: normal: S1, S2 - Gastrointestinal General gastrointestinal: Present: soft - Integumentary Integumentary: Present: normal turgor - Musculoskeletal Musculoskeletal: Present: gait normal - Psychiatric Psychiatric: Present: A&O x's 3, appropriate affect, intact judgment & insight - Additional findings Additional findings: Breast Exam: BRA: 34B Inspection: Bilateral grade 2 ptosis Palpation: Right breast: Multi-positional exam fibrocystic changes no dominant masses or nodules of concern Right axilla: No adenopathy of concern Left breast: Multi-positional exam fibrocystic changes no dominant masses or nodules of concern Left axilla: No adenopathy of concern Assessment and Plan Assessment: Impression: 1. Bilateral fibrocystic breast changes Plan: Patient to for bilateral mammogram in June with ultrasound being performed of the right breast as well patient to follow-up with me at that time CC: Dr. Molly Cunha
== END ==
LOC: WWCWWP 14:37
PROVIDERS: ATTEND Surgery
DX: Z53.9 Procedure and treatment not carried out, unspecified reason (principal)

== ENCOUNTER → 2021-07-09 | Outpatient (CLI) | payer OTHER ==
[2021-07-09 14:17] LABS: Basophils # (A) 0.03 X 10*3/uL (0.00-0.10); Basophils % (A) 0.9 %; Eosinophils # (A) 0.12 X 10*3/uL (0.04-0.35); Eosinophils % (A) 3.5 %; HCT 39.7 % (37.2-46.3); HGB 13.4 g/dL (12.0-15.0); MCHC 33.8 g/dL (32.0-37.0); MCV 88.8 fL (80.0-97.0); Mean Platelet Volume 10.2 fL (9.5-12.2); Monocytes % (A) 5.8 %; Neutrophils # (A) 1.76 X 10*3/uL (1.80-7.70); Neutrophils % (A) 51.5 %; Platelet Count 221 X 10*3/uL (140-440); RBC 4.47 X 10*6/uL (4.10-5.20); RDW 12.2 % (11.5-14.5); WBC 3.42 X 10*3/uL (4.50-10.00)
[2021-07-09 14:34] LABS: ALT 12 U/L (8-44); AST 11 U/L (13-35); African American GFR (CKD) 110.7 (60.0-200.0); Albumin 4.8 g/dL (3.8-4.9); Alkaline Phosphatase 69 U/L (41-126); BUN/Creat Ratio 12.71 Ratio (12.00-20.00); Bilirubin, Conjugated <0.20 mg/dL (0.20-0.40); Blood Urea Nitrogen 8.9 mg/dL (9.0-27.0); Calcium 9.5 mg/dL (8.7-10.3); Carbon Dioxide 23.4 mmol/L (20.0-27.5); Chloride 103 mmol/L (96-109); Chol/HDL Ratio 3.92 Ratio; Glucose 97 mg/dL (70-110); LDL Cholesterol,Calculated 155.3 mg/dL (0.0-131.0); Non-African American GFR(CKD) 95.5 (60.0-200.0); Potassium 4.4 mmol/L (3.5-5.5); Sodium 139 mmol/L (135-145); Total Protein 6.8 g/dL (6.2-8.2)
== END | disposition home or self-care (01) ==
LOC: LABWHC1 09:32
PROVIDERS: ATTEND Psychiatry & Neurology Psychiatry
DX: F31.32 Bipolar disorder, current episode depressed, moderate (principal)
CPT/HCPCS: 36415; 80048; 80061; 80076; 83036; 84436; 84439; 84443; 84479; 85025

== ENCOUNTER → 2021-09-11 | Outpatient (CLI) | payer OTHER ==
--- NOTE | 2021-09-13 13:41 | MM ---
Reason for exam: screening (asymptomatic). Last mammogram was performed 8 months ago. History: Patient is postmenopausal. Family history of breast cancer in sister at age 20. Physical Findings: A clinical breast exam by your physician is recommended on an annual basis and results should be correlated with mammographic findings. MG Screening Mammo w CAD Bilateral CC and MLO view(s) were taken. Prior study comparison: January 17, 2021, right breast MG diagnostic mammo RT w CAD. July 06, 2020, mammogram, performed at [facility]. The breast tissue is heterogeneously dense. This may lower the sensitivity of mammography. No significant changes when compared with prior studies. ASSESSMENT: Benign, BI-RAD 2 RECOMMENDATION: Routine screening mammogram of both breasts in 1 year.
== END | disposition home or self-care (01) ==
LOC: RADMAMWWP 16:53
PROVIDERS: ATTEND Surgery
DX: Z12.31 Encounter for screening mammogram for malignant neoplasm of breast (principal)
CPT/HCPCS: 77067

== ENCOUNTER → 2021-10-08 | Outpatient (CLI) | payer OTHER ==
--- NOTE | 2021-10-08 22:04 | CT ---
EXAMINATION TYPE: CT chest wo con DATE OF EXAM: 10/08/2021 INDICATION: h/o covid and mid sternal pain while breathing CT DLP: 303.5 mGy.cm Automated Exposure Control for Dose Reduction was Utilized. TECHNIQUE AND CONTRAST: CT scan of the chest without IV contrast administration. COMPARISON: CT dated 12/17/2019 FINDINGS: Minimal bilateral apical pulmonary fibrotic changes/scarring, stable. Right posterior basal linear pu lmonary atelectasis. Unremarkable lungs otherwise. No new suspicious or progressive lung lesion. [place] nt central airways. No pleural effusion. No gross cardiomegaly. Small pericardial fluid. Minimal arterial atherosclerotic calcifications. No p athologically enlarged lymph nodes in the chest by this nonenhanced CT scan. Scattered hepatic cysts, appreciated previously. Previous cholecystectomy. Left anterior splenic cyst measuring 4 cm, appreciated previously. Degenerative changes of the lower cervical and thoracic spin e. No significant sternal abnormality identified. IMPRESSION: Minimal pulmonary changes as described above, likely clinically insignificant. No new suspicious or p rogressive lung lesion. No significant pulmonary fibrotic changes. Grossly unremarkable sternum. Inci dental findings as described above.
== END | disposition home or self-care (01) ==
LOC: RADCTMAIN 17:21
PROVIDERS: ATTEND Internal Medicine Pulmonary Disease
DX: U07.1 COVID-19 (principal); M06.9 Rheumatoid arthritis, unspecified; J45.50 Severe persistent asthma, uncomplicated; G47.33 Obstructive sleep apnea (adult) (pediatric)
CPT/HCPCS: 71250

== ENCOUNTER → 2021-10-25 | Outpatient (CLI) | payer OTHER ==
[2021-10-25 13:20] VITALS: BP 124/82; PULSE 96; RESP 13; TEMP 97.9
--- NOTE | 2021-10-25 13:45 | P.PN ---
Subjective Progress Note Date: 10/25/21 Principal diagnosis: Fibrocystic breast changes Fibrocystic breast changes Praveena is a 55 year old white female seen in consultation for Dr. Saavedra on 08-25-20 regarding a mammographic abnormality in her right breast. She had a bilateral mammogram performed on . This revealed a 6-7 mm nodular density in the upper-outer quadrant of the right breast. No lesions of concern were noted in the left breast. An ultrasound was performed. This revealed a 0.5 cm circumscribed oval lesion. This was felt to be too small to characterize and 6 month follow-up ultrasound was recommended. The patient herself did not note any lumps masses or nodules in her breast. She did not complain of any nipple discharge or skin changes. No complaints of any breast pain. She had not had any recent trauma or infection in the breast. She's not had any surgery or biopsies in the breast in the past. The patient on 01-17-21 had a right breast mammogram and ultrasound which was BIRAD 3 and 6 month follow up of both breast recommended. 07-28-21 The patient on 09-11-21 had a bilateral mammogram. This was benign BIRAD 2. She is not complaining of any new lumps masses or nodules of concern in either breast. She is not complaining of any nipple discharge or skin changes. Caffeine: 3 cups coffee/day Nicotine: none chocolate: occasional Family history: father: thyroid cancer maternal grandfather: cancer, ? source 1/2 brother: testicular cancer Hormonal History: menarche: 13 , 1 miscarriage, age at first : 15, breast fed: no menopause:48 BCP: < 1 years hormones: none Surgical History: exploratory laproscopic exam oral surgery biopsy of skin gallbaldder Medical History: herniation of cervical disc lumbar spine herniation DJD osteoarthritis arthritis rheumatoid bipolar and major depressive disorder CT scan post COVID right lung scarring; fluid around heart needs to have an echo done Social History: smoke: stopped 2017, was 1 06/24 PPD alcohol: stopped drinking 3 years ago used to drink heavy drugs: Marijuana three days a week - Constitutional Constitutional: Reports sweats - EENT Eyes: bilateral as per HPI Ears: deny: decreased hearing, tinnitus Ears, nose, mouth and throat: Denies headache, Denies sore throat - Breasts Breasts: bilateral: as per HPI - Cardiovascular Cardiovascular: Denies chest pain, Denies shortness of breath - Respiratory Comment: former smoker, asthma, sleep apnea - Gastrointestinal Gastrointestinal: Reports constipation, Denies abdominal pain, Denies diarrhea, Denies nausea, Denies vomiting - Genitourinary (Female) Genitourinary: Denies dysuria, Denies hematuria - Menstruation Menstruation: Reports postmenopausal - Musculoskeletal Musculoskeletal: Reports as per HPI - Integumentary Integumentary: Reports pruritus - Neurological Neurological: Reports numbness, Reports weakness - Psychiatric Comment: bipolar Psychiatric: Reports anxiety, Reports depression - Endocrine Endocrine: Reports fatigue, Reports weight change - Hematologic/Lymphatic Comment: none - Allergic/Immunologic Allergic/Immunologic: Reports seasonal allergies Objective - Vital Signs Vital signs: Vital Signs Temp 97.9 F 10/25/21 13:08 Pulse 96 10/25/21 13:08 Resp 13 10/25/21 13:08 BP 124/82 10/25/21 13:08 Pulse Ox 96 10/25/21 13:08 Intake & Output 10/24/21 10/25/21 10/25/21 18:59 06:59 18:59 Weight 70.307 kg - Exam BMI 24.3 - Constitutional General appearance: Present: cooperative - EENT Eyes: Present: EOMI ENT: Present: hearing grossly normal - Neck Neck: Present: normal ROM - Respiratory Respiratory: bilateral: CTA - Cardiovascular Heart sounds: normal: S1, S2 - Integumentary Integumentary: Present: normal turgor - Musculoskeletal Musculoskeletal: Present: gait normal - Psychiatric Psychiatric: Present: A&O x's 3, appropriate affect, intact judgment & insight - Additional findings Additional findings: Breast examination: Bra: 34B inspection: bilateral grade 2 ptosis palpation: right breast: Positional exam fibrocystic changes no dominant masses or nodules of concern Right axilla: No adenopathy of concern Left breast: Multi-positional exam fibrocystic changes no dominant masses or nodules of concern Left axilla: No adenopathy of concern Assessment and Plan Assessment: Impression: Fibrocystic breast changes Plan: Bilateral mammogram in 1 year Follow-up with any questions or concerns Cc: Dr. Molly Saavedra
== END | disposition home or self-care (01) ==
LOC: WWCWWP 12:57
PROVIDERS: ATTEND Surgery
DX: Z53.9 Procedure and treatment not carried out, unspecified reason (principal)

== ENCOUNTER → 2021-12-26 | Outpatient (CLI) | payer OTHER ==
[2021-12-26 10:30] LABS: Basophils # (A) 0.03 X 10*3/uL (0.00-0.10); Basophils % (A) 0.8 %; Eosinophils # (A) 0.18 X 10*3/uL (0.04-0.35); Eosinophils % (A) 4.5 %; HGB 13.2 g/dL (12.0-15.0); Immature Grans, Automated 0.3 %; Lymphocytes # (A) 1.35 X 10*3/uL (0.90-5.00); MCH 29.3 pg (27.0-32.0); MCV 88.7 fL (80.0-97.0); Mean Platelet Volume 10.1 fL (9.5-12.2); Monocytes # (A) 0.22 X 10*3/uL (0.20-1.00); Monocytes % (A) 5.5 %; NRBC Per 100 WBC 0 /100 WBCS (0.0-0.0); Neutrophils # (A) 2.18 X 10*3/uL (1.80-7.70); Neutrophils % (A) 54.9 %; Platelet Count 222 X 10*3/uL (140-440); RBC 4.51 X 10*6/uL (4.10-5.20); RDW 12.1 % (11.5-14.5); WBC 3.97 X 10*3/uL (4.50-10.00)
[2021-12-26 10:57] LABS: ALT 14 U/L (8-44); AST 14 U/L (13-35); African American GFR (CKD) 103.7 (60.0-200.0); Albumin 4.7 g/dL (3.8-4.9); Albumin/Globulin Ratio 2.36 (1.60-3.17); Alkaline Phosphatase 67 U/L (41-126); BUN/Creat Ratio 14.88 Ratio (12.00-20.00); Calcium 9.6 mg/dL (8.7-10.3); Carbon Dioxide 23.3 mmol/L (20.0-27.5); Chloride 106 mmol/L (96-109); Chol/HDL Ratio 3.58 Ratio; Glucose 106 mg/dL (70-110); LDL Cholesterol,Calculated 128.2 mg/dL (0.0-131.0); Non-African American GFR(CKD) 89.4 (60.0-200.0); Potassium 4.5 mmol/L (3.5-5.5); Sodium 141 mmol/L (135-145); Total Protein 6.7 g/dL (6.2-8.2)
== END | disposition home or self-care (01) ==
LOC: LABWHC1 07:29
PROVIDERS: ATTEND Internal Medicine Cardiovascular Disease
DX: E78.2 Mixed hyperlipidemia (principal); Z79.899 Other long term (current) drug therapy
CPT/HCPCS: 36415; 80053; 80061; 80178; 84439; 84443; 84481; 85025

== ENCOUNTER → 2022-03-20 | Outpatient (CLI) | payer OTHER ==
[2022-03-20 18:03] LABS: Basophils # (A) 0.04 X 10*3/uL (0.00-0.10); Basophils % (A) 0.8 %; Eosinophils # (A) 0.17 X 10*3/uL (0.04-0.35); Eosinophils % (A) 3.3 %; HCT 40.3 % (37.2-46.3); HGB 13.5 g/dL (12.0-15.0); Immature Grans, Automated 0.4 %; Lymphocytes # (A) 1.82 X 10*3/uL (0.90-5.00); Lymphocytes % (A) 35.1 %; MCH 30.5 pg (27.0-32.0); MCHC 33.5 g/dL (32.0-37.0); Mean Platelet Volume 10.1 fL (9.5-12.2); Monocytes # (A) 0.31 X 10*3/uL (0.20-1.00); NRBC Per 100 WBC 0 /100 WBCS (0.0-0.0); Neutrophils # (A) 2.83 X 10*3/uL (1.80-7.70); Neutrophils % (A) 54.4 %; Platelet Count 258 X 10*3/uL (140-440); RBC 4.43 X 10*6/uL (4.10-5.20); RDW 12.1 % (11.5-14.5); WBC 5.19 X 10*3/uL (4.50-10.00)
== END | disposition home or self-care (01) ==
LOC: LABWHC1 12:09
PROVIDERS: ATTEND Nurse Practitioner Psychiatric/Mental Health
DX: Z51.81 Encounter for therapeutic drug level monitoring (principal); Z79.899 Other long term (current) drug therapy
CPT/HCPCS: 36415; 80178; 85025

== ENCOUNTER → 2022-06-07 | Outpatient (CLI) | payer OTHER ==
[2022-06-07 18:45] LABS: Basophils # (A) 0.04 X 10*3/uL (0.00-0.10); Basophils % (A) 0.8 %; Eosinophils # (A) 0.15 X 10*3/uL (0.04-0.35); Eosinophils % (A) 2.9 %; HGB 12.8 g/dL (12.0-15.0); Immature Grans, Automated 0.2 %; Lymphocytes # (A) 1.36 X 10*3/uL (0.90-5.00); Lymphocytes % (A) 26.4 %; MCH 29.2 pg (27.0-32.0); MCHC 31.2 g/dL (32.0-37.0); MCV 93.6 fL (80.0-97.0); Mean Platelet Volume 10.1 fL (9.5-12.2); Monocytes # (A) 0.31 X 10*3/uL (0.20-1.00); NRBC Per 100 WBC 0 /100 WBCS (0.0-0.0); Neutrophils # (A) 3.29 X 10*3/uL (1.80-7.70); Neutrophils % (A) 63.7 %; Platelet Count 242 X 10*3/uL (140-440); RBC 4.38 X 10*6/uL (4.10-5.20); RDW 11.9 % (11.5-14.5); WBC 5.16 X 10*3/uL (4.50-10.00)
[2022-06-07 19:16] LABS: African American GFR (CKD) 98.6 (60.0-200.0); Albumin/Globulin Ratio 2.45 (1.60-3.17); Anion Gap 9.9 mmol/L (10.00-18.00); BUN/Creat Ratio 15.14 Ratio (12.00-20.00); Blood Urea Nitrogen 11.6 mg/dL (9.0-27.0); Calcium 10.1 mg/dL (8.7-10.3); Carbon Dioxide 25.7 mmol/L (20.0-27.5); Globulin 2.1 g/dL (1.6-3.3); Non-African American GFR(CKD) 85.1 (60.0-200.0); Potassium 5.1 mmol/L (3.5-5.5); T4, Free (Free Thyroxine) 0.86 ng/dL (0.800-1.800); Total Bilirubin 0.5 mg/dL (0.30-1.20); Total Protein 7.1 g/dL (6.2-8.2)
[2022-06-07 19:50] LABS: Lithium 0.8 mmol/L (0.50-1.20)
== END | disposition home or self-care (01) ==
LOC: LABWHC1 11:44
PROVIDERS: ATTEND Nurse Practitioner Psychiatric/Mental Health
DX: Z79.899 Other long term (current) drug therapy (principal)
CPT/HCPCS: 36415; 80053; 80178; 84436; 84439; 84443; 84479; 84481; 85025

== ENCOUNTER → 2022-06-20 | Outpatient (CLI) | payer OTHER ==
[2022-06-20 20:38] LABS: C Reactive Protein <0.30 mg/dL (0.00-0.80); Rheumatoid Factor, Qnt 41 IU/mL (0-15)
== END | disposition home or self-care (01) ==
LOC: LABWHC1 09:30
PROVIDERS: ATTEND Psychiatry & Neurology Neurology
DX: M05.9 Rheumatoid arthritis with rheumatoid factor, unspecified (principal)
CPT/HCPCS: 36415; 85652; 86140; 86431

== ENCOUNTER → 2022-11-01 | Outpatient (CLI) | payer OTHER ==
[2022-11-01 15:14] LABS: African American GFR (CKD) 94.8 (60.0-200.0); Anion Gap 8.3 mmol/L (10.00-18.00); BUN/Creat Ratio 15.8 Ratio (12.00-20.00); Blood Urea Nitrogen 12.5 mg/dL (9.0-27.0); Calcium 9.7 mg/dL (8.7-10.3); Carbon Dioxide 23.8 mmol/L (20.0-27.5); Non-African American GFR(CKD) 81.8 (60.0-200.0); Potassium 4.2 mmol/L (3.5-5.5)
[2022-11-01 15:27] LABS: Basophils # (A) 0.04 X 10*3/uL (0.00-0.10); Basophils % (A) 0.9 %; Eosinophils # (A) 0.13 X 10*3/uL (0.04-0.35); Eosinophils % (A) 2.9 %; HCT 40.1 % (37.2-46.3); HGB 12.5 g/dL (12.0-15.0); Immature Grans, Automated 0.4 %; Lymphocytes # (A) 1.24 X 10*3/uL (0.90-5.00); Lymphocytes % (A) 27.6 %; MCH 29.3 pg (27.0-32.0); MCHC 31.2 g/dL (32.0-37.0); MCV 93.9 fL (80.0-97.0); Mean Platelet Volume 10.1 fL (9.5-12.2); Monocytes # (A) 0.21 X 10*3/uL (0.20-1.00); Monocytes % (A) 4.7 %; NRBC Per 100 WBC 0 /100 WBCS (0.0-0.0); Neutrophils # (A) 2.85 X 10*3/uL (1.80-7.70); Neutrophils % (A) 63.5 %; Platelet Count 221 X 10*3/uL (140-440); RBC 4.27 X 10*6/uL (4.10-5.20); RDW 11.9 % (11.5-14.5); WBC 4.49 X 10*3/uL (4.50-10.00)
== END | disposition home or self-care (01) ==
LOC: LABPAT 08:27
PROVIDERS: ATTEND Orthopaedic Surgery
DX: Z01.818 Encounter for other preprocedural examination (principal); M23.92 Unspecified internal derangement of left knee; R94.31 Abnormal electrocardiogram [ECG] [EKG]; R00.1 Bradycardia, unspecified
CPT/HCPCS: 80048; 85025; 93005

== ENCOUNTER 2022-11-15 09:47 | Day surgery (SDC) | payer OTHER ==
--- NOTE | 2022-11-14 09:11 | P.HPOR ---
History of Present Illness H&P Date: 11/14/22 Chief Complaint: Left knee pain The patient is a 57-year-old female who presents with progressive left knee pain for the past 9 months. She has diffuse pain along with swelling. She has intermittent locking and buckling. She recently completed therapy along with trying medications without much relief. She does daily pain and limitation. Review of Systems As per HPI Past Medical History Past Medical History: Asthma, COPD, Musculoskeletal Disorder, Osteoarthritis (OA), Rheumatoid Arthritis (RA), Sleep Apnea/CPAP/BIPAP Additional Past Medical History / Comment(s): past hx. of bradycardia episode one time-no further problem, had Covid early 2021-worsened asthma & was told has COPD, supposed to use CPAP, doesn't always use, multiple herniated discs neck & back, DDD History of Any Multi-Drug Resistant Organisms: MRSA Date of last positivie culture/infection: 2018 MDRO Source:: toe Past Surgical History: Cholecystectomy Additional Past Surgical History / Comment(s): abd laparotomy, oral surg. Past Anesthesia/Blood Transfusion Reactions: No Reported Reaction Smoking Status: Former smoker Medications and Allergies Home Medications Medication Instructions Recorded Confirmed Type Albuterol Sulfate [Proair Hfa] 1 - 2 puff INHALATION Q6HR PRN 08/25/20 11/12/22 History Gabapentin [Neurontin] 400 mg PO TID 08/25/20 11/12/22 History HYDROcodone/APAP 5-325MG [[place] 1 tab PO TID 08/25/20 11/12/22 History 5-325] Montelukast [Singulair] 10 mg PO HS 08/25/20 11/12/22 History tiZANidine [Zanaflex] 4 mg PO BID 08/25/20 11/12/22 History DULoxetine HCL [Cymbalta] 60 mg PO BID 05/10/21 11/12/22 History Brexpiprazole [Rexulti] 2 mg PO DAILY 11/12/22 11/12/22 History Fluticasone Propionate [Flovent 2 inhalation PO BID 11/12/22 11/12/22 History Hfa 220 mcg] [place] Carbonate [[place] 450 mg PO HS 11/12/22 11/12/22 History Carbonate ER] Allergies Allergy/AdvReac Type Severity Reaction Status Date / Time meloxicam [From Mobic] Allergy Rash/Hives Verified 11/12/22 12:39 Penicillins Allergy Unknown Verified 11/12/22 12:39 Childhood Physical Examination - Knee left Appearance: effusion Effusion grade: grade 1 Tenderness with palpation: medial, lateral Pain: throughout ROM Gait: limping ROM: extension: -10 degrees ROM: flexion: 130 degrees Crepitus with motion: Yes Strength: extension: 5/5 Strength: flexion: 5/5 Meniscal tests: medial meniscal tests: positive, medial joint line pain: positive Results The patient is a well-developed well-nourished female, approximate 5 foot 7, 163 pounds of endomorphic habitus. HEENT exam is nonfocal, neck is supple. She has pain with passive motion of the left hip. Straight leg raise is negative. Her distal neurovascular appears intact in the left lower extremity. - Diagnostic results Knee MRI: image reviewed (Left knee MRI report shows evidence of a posterior medial meniscal tear along with medial compartment degenerative changes.) Assessment and Plan Assessment: Left knee internal derangement/symptomatic medial meniscal tear Plan: I talked to the patient went regarding her condition, treatment options. At this point she is quite symptomatic having pain and mechanical symptoms despite previous conservative measures. After thorough discussion she opted to proceed with surgery. We'll plan to proceed with left knee arthroscopic evaluation with probable partial medial meniscectomy. Risks and benefits were discussed at length in layman's terms. We will likely perform that as an outpatient procedure.
[~2022-11-15 09:47] MED LIST: DEXAMETHASONE SOD PHOSPHATE 4 MG/ML 1 ML VIAL IV ONE; LACTATED RINGERS 1,000 ML IV SCH; MIDAZOLAM 2 MG/2 ML VIAL IV PRN; ONDANSETRON 4 MG/2 ML VIAL IVP ONE; SCOPOLAMINE 1 MG/72 HR PATCH TRANSDERM ONE
[2022-11-15] MEDS ORDERED: MIDAZOLAM 2 MG/2 ML VIAL ONE (11:20)
[2022-11-15] MEDS ORDERED: PROPOFOL 10 MG/ML 20 ML VIAL IV ONE (11:20)
[2022-11-15] MEDS ORDERED: SUCCINYLCHOLINE CHLORIDE 200 MG/10 ML VIAL IV ONE (11:20)
[2022-11-15] MEDS ORDERED: LIDOCAINE 2% INJ 20 MG/ML (2 ML VIAL) ONE (11:20)
[2022-11-15] MEDS ORDERED: fentaNYL (PF) 50 MCG/ML 2 ML AMP ONE (11:20)
--- NOTE | 2022-11-15 12:05 | P.OP ---
Date of Procedure: 11/15/22 Preoperative Diagnosis: Left knee internal derangement Postoperative Diagnosis: Left knee posterior medial meniscal tear/middle one third lateral meniscal tear Procedure(s) Performed: Left knee arthroscopic partial medial meniscectomy/partial lateral meniscectomy Anesthesia: IVAN Surgeon: Kenan Hansen Estimated Blood Loss (ml): 10 Pathology: none sent Condition: stable Disposition: PACU Indications for Procedure: The patient's a 57-year-old female presents with progressive left knee pain and mechanical symptoms despite conservative measures. A discussion of the risks and benefits of operative intervention versus continued conservative measures was made with patient. She opted to proceed with surgery. Operative risks to include infection, neurovascular injury, development of blood clots, possible incomplete resolution of symptoms, possible worsening symptoms and need for subsequent procedures was discussed. Informed consent was obtained. Operative Findings: As below Description of Procedure: The patient was brought to the operating room, and after induction of general anesthesia examined the left knee. Collaterals were stable, Bari was negative, and posterior drawer was negative. The left lower extremity was prepped and draped in a normal fashion. A superior lateral portal was made through a 3 mm skin incision superior and lateral to the patella. This was used for outflow. A lateral portal was made through a 5 mm vertical skin incision lateral to the patella tendon above the joint line. Diagnostic arthroscopy was performed. On inspection of the medial compartment, a longitudinal tear involving the posterior horn medial meniscus in the white-white junction was noted. This was debrided back to stable base with straight baskets and a motorized shaver. Grade 2 chondral changes were noted diffusely in the medial compartment. On inspection of the notch, the anterior cruciate ligament appeared to be intact. On inspection of the lateral compartment, a radial tear involving the middle one third of the lateral meniscus in the white-white junction was noted. This was debrided back to stable base with straight baskets and a motorized shaver. The remaining lateral meniscus was stable and intact. On inspection of the patellofemoral articulation, there was chondral fibrillation however no loose chondral fragments.. The gutters were clear debris. The knee was then thoroughly irrigated. The portals were closed with Steri-Strips. A sterile dressing was applied in addition to a compression stocking. The patient was awoken from general anesthesia and transferred to r ecovery room in good condition. Blood loss was estimated at 10 mL. No complications were incurred.
[2022-11-15 12:24] VITALS: TEMP 97
[2022-11-15] MEDS: HYDROmorphone 0.5 MG/0.5 ML SYRINGE IVP PRN ×2 (12:37→12:50)
[2022-11-15] MEDS ORDERED: ONDANSETRON 4 MG/2 ML VIAL IVP ONE (13:01)
[2022-11-15 13:47] VITALS: RESP 16
[2022-11-15] MEDS ORDERED: LACTATED RINGERS 1,000 ML IV ONE (13:48)
[2022-11-15 14:20] VITALS: BP 114/51; PULSE 79
== END 2022-11-15 14:32 | disposition home or self-care (01) ==
LOC: OR 09:47
PROVIDERS: ATTEND Orthopaedic Surgery
DX: S83.242A Other tear of medial meniscus, current injury, left knee, initial encounter (principal); J44.9 Chronic obstructive pulmonary disease, unspecified; M06.9 Rheumatoid arthritis, unspecified; Z90.49 Acquired absence of other specified parts of digestive tract; Z87.891 Personal history of nicotine dependence; Z79.899 Other long term (current) drug therapy; Z79.51 Long term (current) use of inhaled steroids; Z88.8 Allergy status to other drugs, medicaments and biological substances; X58.XXXA Exposure to other specified factors, initial encounter
CPT/HCPCS: 29880; J2250; J0330; J1100; J2405; J0690; J3010; J2704; J1170; J2001

== ENCOUNTER → 2023-01-01 | Outpatient (CLI) | payer OTHER ==
--- NOTE | 2023-01-02 20:19 | MM ---
Reason for Exam: Screening (asymptomatic). Last mammogram was performed 1 year(s) and 4 month(s) ago. Patient History: Menarche at age 13. First Full-Term at age 15. Postmenopausal. Paternal half sister had breast cancer, age 20. Risk Values: Teresa 5 year model risk: 0.9%. NCI Lifetime model risk: 5.0%. Prior Study Comparison: 07/06/2020 Screening Mammogram, [facility]. 01/17/2021 Right Diagnostic Mammogram, [facility]. 09/11/2021 Bilateral Screening Mammogram, [facility]. Tissue Density: The breast tissue is heterogeneously dense. This may lower the sensitivity of mammography. Findings: Analyzed By CAD. Unchanged nodular asymmetric density far posterior lateral right breast. There is no suspicious group of microcalcifications or new suspicious mass in either breast. Overall Assessment: Benign, BI-RAD 2 Management: Screening Mammogram of both breasts in 1 year. . Patient should continue monthly self-breast exams. A clinical breast exam by your physician is recommended on an annual basis. This exam should not preclude additional follow-up of suspicious palpable abnormalities. Note on Teresa scores and lifetime risk: 1. A Teresa score greater than 3% is considered moderate risk. If this is the case, consider specialist referral to assess eligibility for a risk reducing agent. 2. If overall lifetime risk for the development of breast cancer is 20% or higher, the patient may qualify for future screening with alternating mammogram and breast MRI. Electronically signed and approved by: Elina Gómez M.D. Radiologist
== END | disposition home or self-care (01) ==
LOC: RADMAMWWP 13:10
PROVIDERS: ATTEND Family Medicine
DX: Z12.31 Encounter for screening mammogram for malignant neoplasm of breast (principal); Z80.3 Family history of malignant neoplasm of breast; Z78.0 Asymptomatic menopausal state
CPT/HCPCS: 77067

== ENCOUNTER → 2023-01-02 | Outpatient (CLI) | payer OTHER ==
--- NOTE | 2023-01-02 11:04 | US ---
EXAMINATION TYPE: US extremity nonvasc complt RT, US extremity nonvasc complt LT (bilateral wrists fo r carpal tunnel syndrome) DATE OF EXAM: 01/02/2023 Comparison: None Clinical History: 57-year-old female G56.03 CARPAL TUNNEL TECHNIQUE: Multiple sonographic images of the volar aspect of both wrists for assessment of the media n nerve. Reflux maneuvers were utilized as well. Findings: Right: The median nerve at the level of the distal forearm/supinator has a cross-sectional area of 10 sq mm. At the distal wrist crease, it has a cross-sectional area of 11 sq mm. The nerve moves appropriately with dynamic maneuvers. Left: The median nerve at the level of the distal forearm/supinator has a cross-sectional area of 7 sq mm. At the distal wrist crease, it has a cross-sectional area of 13 sq mm which is borderline to mildly t hickened. The nerve moves appropriately with dynamic maneuvers. IMPRESSION: 1. Right: Normal caliber median nerve at the carpal tunnel with appropriate movement with dynamic man euvers. 2. Left: Borderline to mild thickening of the median nerve at 13 sq mm at the carpal tunnel may be se condary to some degree of carpal tunnel syndrome in the appropriate clinical setting.
== END | disposition home or self-care (01) ==
LOC: RADUSWWP 10:09
PROVIDERS: ATTEND Internal Medicine Rheumatology
DX: G56.03 Carpal tunnel syndrome, bilateral upper limbs (principal)

== ENCOUNTER → 2023-05-28 | Outpatient (CLI) | payer MEDICARE, OTHER ==
[2023-05-28 15:41] LABS: Basophils # (A) 0.03 X 10*3/uL (0.00-0.10); Basophils % (A) 0.7 %; Eosinophils # (A) 0.08 X 10*3/uL (0.04-0.35); Eosinophils % (A) 1.9 %; HCT 41.8 % (37.2-46.3); HGB 13.6 g/dL (12.0-15.0); Lymphocytes # (A) 1.32 X 10*3/uL (0.90-5.00); Lymphocytes % (A) 31.4 %; MCHC 32.5 g/dL (32.0-37.0); MCV 92.3 FL (80.0-97.0); Mean Platelet Volume 10.3 FL (9.5-12.2); Monocytes # (A) 0.26 X 10*3/uL (0.20-1.00); Monocytes % (A) 6.2 %; NRBC Per 100 WBC 0 X 10*3/uL (0.00-0.01); Neutrophils % (A) 59.6 %; Platelet Count 262 X 10*3/uL (140-440); RBC 4.53 X 10*6/uL (4.10-5.20); RDW 11.9 % (11.5-14.5)
[2023-05-28 15:54] LABS: ALT 17 U/L (8-44); AST 17 U/L (13-35); Albumin 4.7 g/dL (3.8-4.9); Albumin/Globulin Ratio 2.24 Ratio (1.60-3.17); Alkaline Phosphatase 75 U/L (41-126); BUN/Creat Ratio 9.12 Ratio (12.00-20.00); Bilirubin, Conjugated <0.20 mg/dL (0.20-0.40); Bilirubin,Unconjugated >0.30 mg/dL (0.20-1.00); Blood Urea Nitrogen 7.3 mg/dL (9.0-27.0); Calcium 9.8 mg/dL (8.7-10.3); Carbon Dioxide 24.1 mmol/L (21.6-31.8); Chloride 104 mmol/L (96-109); Chol/HDL Ratio 3.78 Ratio; Globulin 2.1 g/dL (1.6-3.3); Glucose 87 mg/dL (70-110); LDL Cholesterol,Calculated 156.4 mg/dL (0.0-131.0); Lipase 12 U/L (14-63); Potassium 4.6 mmol/L (3.5-5.5); Sodium 141 mmol/L (135-145); T4, Free (Free Thyroxine) 1.08 ng/dL (0.80-1.80); Total Bilirubin 0.5 mg/dL (0.3-1.2); Total Protein 6.8 g/dL (6.2-8.2)
== END | disposition home or self-care (01) ==
LOC: LABWHC1 09:10
DX: F31.32 Bipolar disorder, current episode depressed, moderate (principal)
CPT/HCPCS: 36415; 80053; 80061; 80178; 82248; 83036; 83690; 84436; 84439; 84443; 84479; 85025

== ENCOUNTER → 2023-07-11 | Outpatient (CLI) | payer MEDICARE, OTHER | END | disposition home or self-care (01) | LOC: LABWHC1 08:28 | PROVIDERS: ATTEND Psychiatry & Neurology Psychiatry | DX: F31.12 Bipolar disorder, current episode manic without psychotic features, moderate (principal); Z79.899 Other long term (current) drug therapy ==

== ENCOUNTER → 2023-07-17 | Outpatient (CLI) | payer MEDICARE, OTHER ==
[2023-07-17 15:33] LABS: Blood Urea Nitrogen 10.9 mg/dL (9.0-27.0); Chol/HDL Ratio 3.66 Ratio; Glucose 91 mg/dL (70-110); LDL Cholesterol,Calculated 150.4 mg/dL (0.0-131.0); T4, Free (Free Thyroxine) 0.89 ng/dL (0.80-1.80)
== END | disposition home or self-care (01) ==
LOC: LABWHC1 09:54
PROVIDERS: ATTEND Psychiatry & Neurology Psychiatry
DX: F31.12 Bipolar disorder, current episode manic without psychotic features, moderate (principal); Z79.899 Other long term (current) drug therapy
CPT/HCPCS: 36415; 80061; 80178; 82565; 82947; 83036; 84439; 84443; 84520

== ENCOUNTER → 2024-03-23 | Outpatient (CLI) | payer MEDICARE, OTHER ==
--- NOTE | 2024-03-23 11:30 | CTL ---
EXAMINATION TYPE: CT Low Dose Lung DATE OF EXAM ORDERED: 03/23/2024 HISTORY: History of nicotine dependence, quit smoking June 2018, 30 pack-year history. Lung cancer screening CT DLP: 86.[address] CTDI: 2.4 mGy Automated exposure control for dose reduction was used. SCREENING VISIT: First screening visit COMPARISON: CT chest 10/08/2021, 12/17/2019 TECHNIQUE: Low dose computed tomography scan was performed through the chest at 1 mm thick sections a nd reconstructed images in multiple planes at 1 mm and [address] DIAGNOSTIC QUALITY: Satisfactory FINDINGS: Nodules: Stable lateral left lower lobe 3 mm pulmonary nodule (series 6, image 38). Stable left lower lobe 4 mm pulmonary nodule (series 6, image 36). No new or enlarging pulmonary nodules. LUNGS: COPD: Severity: None Fibrosis: Severity: None Lymph nodes: None Other findings: Minimal biapical pleural-parenchymal scarring. RIGHT PLEURAL SPACE: Effusion: None Calcification: None Thickening: None Pneumothorax: None LEFT PLEURAL SPACE: Effusion: None Calcification: None Thickening: None Pneumothorax: None HEART: Heart Size: Normal Coronary Calcification: None Pericardial Effusion: Trace OTHER FINDINGS: Upper abdomen: Postcholecystectomy changes. Stable left hepatic lobe 3.8 cm cyst. Stable anterior spl enic 3.3 cm cyst. Bony thorax: Mild multilevel degenerative disc disease of the thoracic spine. Supraclavicular region: None Other: None IMPRESSION: Couple of pulmonary nodules measuring up to 4 mm. No new or enlarging pulmonary nodules. CT LUNG RAD AND CT CHEST RECOMMENDATION: Lung-Rad 2 Benign Appearance or Behavior: Continue annual sc reening with LDCT in 12 months. S Modifier (other clinically significant findings): None [facility], , 03/23/2024 11:28 AM
== END | disposition home or self-care (01) ==
LOC: RADCTMAIN 10:26
PROVIDERS: ATTEND Family Medicine
CPT/HCPCS: 71271

== ENCOUNTER → 2024-06-02 | Outpatient (CLI) | payer OTHER ==
[2024-06-02 16:31] LABS: Blood Urea Nitrogen 8.7 mg/dL (9.0-27.0); Chol/HDL Ratio 3.86 Ratio; Glucose 92 mg/dL (70-110)
== END | disposition home or self-care (01) ==
LOC: LABWHC1 08:00
PROVIDERS: ATTEND Psychiatry & Neurology Psychiatry
DX: F31.12 Bipolar disorder, current episode manic without psychotic features, moderate (principal); Z79.899 Other long term (current) drug therapy
CPT/HCPCS: 36415; 80061; 80178; 82565; 82947; 83036; 84439; 84443; 84520